=== PATIENT | female | born 1960 | race Caucasian/White ===

== ENCOUNTER 2023-09-18 13:39 | Emergency (ER) | payer MEDICARE, OTHER, SELFPAY ==
[2023-09-18] VITALS (16 sets, daily range): BP systolic 132–142; BP diastolic 71–92; PULSE 56–67; RESP 13–21; TEMP 36.5–36.7; O2SAT 93–99
--- NOTE | 2023-09-18 13:45 | RT.EKG_ITS ---
APPROVED REPORT Exam: Resting ECG Reason for Exam: epigastric pain Patient Location: E HR:60 bpm ECG Measurements Heart Rate 60 AXIS SC 164 P 49 QRSd 101 QRS 73 QT 403 T 45 QTc 403 Conclusion Sinus rhythm. 60 normal axis no stemi
--- NOTE | 2023-09-18 14:03 | ED.GENADUL_ITS ---
Discharge Plan Discharge Details Chief Complaint: Abd Prob Primary Care Provider: Unknown,Unknown ED Provider: Lex Garrett Home Meds and New Rx's Prescriptions: No Action lorazepam 0.5 mg tablet 0.5 mg PO PRN Patient Comments: TAKE 1 TABLET UP TO THREE TIMES DAILY FOR SEVERE ANXIETY, OR INSOMNIA Discharge Instructions Instructions: Abdominal Pain (ED) HPI General Mode of arrival: ambulatory . Date/Time Provider Initiated Documentation: 09/18/23 13:55 . Limitations to Documentation: no limitations . Information obtained by: patient and family . History of Present Illness 63 year old F presents to the emergency department with the chief complaint of Abdominal pain, described as mild, with intensity rated at 3. Quality is described as aching and other (Bloating), and is localized to the abdomen. Patient reports no radiation. Patient started experiencing this week(s) (1) and it has been constant. No relieving factors improve symptom(s), No exacerbating factors reported . Patient notes nausea/vomiting, shortness of breath and other (anxiety); denies chest pain. Patient did receive the following treatments prior to arrival, NSAID Related Data Home Medications Medication Instructions Recorded Confirmed lorazepam 0.5 mg tablet 0.5 mg PO PRN 09/18/23 09/18/23 Allergies Allergy/AdvReac Type Severity Reaction Status Date / Time No Known Allergies Allergy Unverified 09/18/23 13:47 General Stated Complaint: Abd Prob ROXIE: 3 Review of Systems Constitutional Constitutional: Denies fatigue, Denies headache(s) and Denies weakness ENT Ears, Nose, Mouth, and Throat: Denies headache(s) and Denies neck pain Cardiovascular Cardiovascular: Denies chest pain and Reports dyspnea Respiratory Respiratory: Denies cough and Reports dyspnea Gastrointestinal Gastrointestinal: Reports abdominal pain, Denies belching, Denies melena, Reports bloating, Denies hematochezia, Denies constipation, Denies cramping, Reports heartburn, Denies diarrhea, Reports nausea and Denies vomiting Genitourinary Genitourinary: Denies dysuria Musculoskeletal Musculoskeletal: Denies back pain and Denies neck pain Integumentary/Breasts Skin/Breast: Denies rash Neurologic Neurologic: Denies headache(s) and Denies weakness Psychiatric Psychiatric: Reports anxiety Endocrine Endocrine: Denies fatigue Exam Const General: cooperative, healthy appearing, comfortable and no acute distress Orientation: alert, awake and oriented x3 HENMT Head: normal to inspection, normocephalic and atraumatic Mouth: moist mucous membranes Eyes Conjunctivae: conjunctivae normal Neck Neck: normal visual inspection, trachea midline and supple Chest Chest: normal inspection of the chest and normal palpation of entire chest wall Resp Effort & Inspection: normal respiratory effort and able to speak in complete sentences Auscultation: clear to auscultation bilaterally Cardio Rate: regular rate Rhythm: regular rhythm GI Inspection: normal to inspection Palpation: soft, not firm, no guarding, no masses and nontender Auscultation: normal bowel sounds Back/Spine/Pelvis Back: no CVA tenderness and No back tenderness Skin General skin exam: no rashes or lesions noted Neuro General: patient alert, patient awake, patient oriented x3, moves all extremities and no focal motor deficits Cognition: normal cognition Speech: speech normal Gait: normal gait Motor: muscle tone normal throughout Sensory Exam: no sensory deficits noted Extrem General: normal to inspection, full ROM, capillary refill normal and no pedal edema Psych Appearance: grossly normal Mental Status: mental status grossly normal Speech and Movement: speech and movement normal Mood: anxious mood Affect: anxious affect Course Vital Signs Vital signs: Vital Signs Temperature 36.7 C 09/18/23 13:44 Pulse 64 09/18/23 13:44 Respiratory Rate 18 09/18/23 13:44 Blood Pressure 135/75 09/18/23 13:44 Pulse Oximetry 99 09/18/23 13:44 Temperature 36.7 C 09/18/23 13:44 Temperature Source Oral 09/18/23 13:44 Pulse 64 09/18/23 13:44 Respiratory Rate 18 09/18/23 13:44 Respiratory Effort Normal 09/18/23 13:46 Blood Pressure 135/75 09/18/23 13:44 Blood Pressure Position Sitting 09/18/23 13:44 Pulse Oximetry 99 09/18/23 13:44 Oxygen Delivery Method Room Air 09/18/23 13:44 Oxygen Flow Rate 0 09/18/23 13:44 Medical Decision Making 63-year-old female with a history of anxiety presents for what she describes as a 1 week history of diffuse abdominal discomfort, bloating, nausea but no vomiting. Reports within the past few days symptoms do seem to be more in her epigastric region. She has a history of GERD and previously took omeprazole but has not taken this medication in a few years. States that she thought her symptoms were very similar to her GERD, did take omeprazole over the last 48 hours as well as took ibuprofen with no improvement. She contacted her PCP office today and they recommended going to the nearest ER for concern this could be cardiac in etiology. Patient states soon after this conversation she became more anxious and since that time has felt what she describes as a short of breath. She denies any history of cardiac history. She denies change of appetite. Reports nausea but no vomiting. Denies back pain, dysuria, change in bowel or bladder habits. Patient does admit that a couple of weeks ago she learned that a family member was diagnosed with pancreatic cancer and this has been very worrisome to her. Clinically patient appears anxious but no acute distress and well. Lungs are clear to auscultation. Heart regular rate and rhythm. Abdomen is soft, nontender, no mass. Bowel sounds equal throughout. No CVA tenderness or back pain. Will provide full dose aspirin for potential cardiac etiology as well as a GI cocktail for potential GERD. Given she has not felt well for a week, will obtain a COVID and flu swab as well. Will also obtain a chest x-ray. Will obtain a cardiac workup including a delta troponin and D-dimer. Chest x-ray is unremarkable per radiology Laboratory values including a CBC, D-dimer, CMP are all unremarkable for obvious emergent process. D-dimer is 350, will not pursue CTA of the chest. Urinalysis without evidence of infection. Negative flu negative COVID-negative RSV. Upon reevaluation patient appears well, states that her symptoms are much improved and that she is no longer anxious. She has not received her aspirin or GI cocktail. I confirmed with her RN, this medication will be given now. Patient has remained hemodynamically stable. She appears well, nontoxic, abdomen remains nontender and nonsurgical. I see no clear indication for emergent abdominal CT imaging. Awaiting delta troponin. If troponin is normal and patient is feeling well then I believe discharge home is reasonable. Patient can follow-up with her PCP regarding her symptoms and could certainly have an outpatient cardiac workup including echo cardiogram and stress test as well as a abdominal CT if she continues to have any symptoms. Patient is agreeable to this plan. At time of signout to my colleague RANDEE Hernández awaiting reevaluation, delta troponin, and final disposition. This documentation was generated using Dragon dictation system, please disregard any oddities of phrase or misspellings. Medical Records Medical records narrative: No prior records available for review ECG Data Attestation: I personally reviewed and interpreted this ECG (s) as follows: Interpretation: Sinus rhythm, ventricular rate of 60. No STEMI. Please see official report by Dr. Shelby Quality:[facility] Health Related Social Needs: No Data to Display [facility] Social History Smoking/Tobacco Use Status: Never Smoking risk assessment performed?: Yes Alcohol Intake: never Substance use type: does not use Do you feel safe at home: Yes Do you feel safe in your relationship?: Yes
[2023-09-18 14:43] LABS: Abs Immature Grans 0.01 10^3/uL (0.0-0.06); Absolute Basophil Count 0.06 10^3/uL (0.0-0.2); Absolute Eosinophil Count 0.05 10^3/uL (0.0-0.7); Absolute Lymphocyte Count 1.83 10^3/uL (1.2-3.4); Absolute Neutrophil Count 3.54 10^3/uL (1.2-6.7); Eosinophils % 0.8; HCT 41.4 % (36.0-46.0); HGB 13.7 g/dL (11.2-15.7); Immature Grans % 0.2; Lymphocytes % 30.6; MCH 29.7 pg (27.0-33.0); MCHC 33.1 % (32.0-36.0); MCV 90 fL (80-95); Monocytes % 8.3; Neutrophils % 59.1; Platelet Count 202 10^3/uL (130-400); RBC 4.62 10^6/uL (3.93-5.22); RDW 12.5 % (11.7-14.6); RDW-SD 41.3 fL; WBC 5.99 10^3/uL (4.4-10.8)
[2023-09-18 14:58] LABS: PTT Activated 25.9 sec (23.6-32.8); Prothrombin Time 10.3 sec (9.1-11.1)
[2023-09-18 15:00] LABS: ALT 18 U/L (14-59); AST 15 U/L (15-37); Albumin 3.8 g/dL (3.4-5.0); Alkaline Phosphatase 61 U/L (46-116); Anion Gap 9.3 mmol/L (3-11); BUN 24 mg/dL (7-18); Bilirubin, Total 0.3 mg/dL (0.2-1.0); CO2 25.7 mmol/L (21.0-32.0); CREATININE 0.8 mg/dL (0.55-1.02); Calcium 8.9 mg/dL (8.5-10.1); Chloride 106 mmol/L (98-107); Estimated GFR 81.72 (mL/min/1.73m2); Glucose 93 mg/dL (74-106); Magnesium 2.1 mg/dL (1.8-2.4); Potassium 4.2 mmol/L (3.5-5.1); Sodium 141 mmol/L (136-145); Troponin I < 50 ng/L (< or =60)
[2023-09-18 15:13] LABS: D-Dimer 350 ng/mlFEU (<500)
--- NOTE | 2023-09-18 15:15 | DI.RAD_ITS ---
Exam(s) XR CHEST 2V PA LATERAL EXAM: XR CHEST 2V PA LATERAL CLINICAL HISTORY: upper abd pain TECHNIQUE: 2D digital imaging was performed. Two views. COMPARISON: No exams were available for comparison FINDINGS: HEART: Normal size. Aorta: Not dilated. PULMONARY VASCULATURE: Normal. LUNGS: Clear. PLEURAL SPACE: No pleural effusion or pneumothorax. BONE:Unremarkable for age. Soft tissues: Unremarkable. IMPRESSION: No acute abnormality. DATA REPOSITORY: RADIATION DOSE DELIVERED:
[2023-09-18 15:17] LABS: Bilirubin Negative (Negative); Blood Trace-intact (Negative); Clarity Clear (Clear); Glucose Negative (Negative); Ketones Negative (Negative); Leukocyte Esterase Negative (Negative); Nitrite Negative (Negative); Urobilinogen 0.2 mg/dL (Up to 0.2)
[2023-09-18 15:24] LABS: Bacteria Negative HPF (Negative); C & S Indicated? No; Casts Negative LPF (Negative); Crystals Negative HPF (Negative); Epithelial Cells Rare HPF (Negative); Mucus Negative (Negative); RBC 0-2 HPF (0-2); WBC 0-2 HPF (0-5)
[2023-09-18] MEDS: Aspirin 81 MG CHEW 324 MG CH (15:37)
[2023-09-18 15:51] LABS: COVID-19 PCR Negative (Negative); Influenza A PCR Negative (Negative); Influenza B PCR Negative (Negative); RSV PCR Negative (Negative)
[2023-09-18 15:53] LABS: Source Nasopharynx
[2023-09-18] MEDS: Normal Saline Flush 10 ML SYR IVP (17:04)
[2023-09-18] MEDS: Normal Saline - Diluent 50 ML VIAL IJ (17:04)
[2023-09-18] MEDS: Omnipaque 350 MG/ML 50 ML BTL IJ ×2 (17:05→17:11)
--- NOTE | 2023-09-18 17:18 | DI.CT_ITS ---
Exam(s) CT ABDOMEN PELVIS W EXAM: CT ABDOMEN PELVIS W CLINICAL HISTORY: ruq and epigastric pain TECHNIQUE: Imaging Protocol: Axial computed tomography images with coronal and sagittal reformatted images were created and reviewed. CONTRAST MATERIAL: Intravenous: Omnipaque 350 Contrast volume:100 mL Oral: No COMPARISON: No exams were available for comparison FINDINGS: ABDOMEN: Lung Bases: Normal where visualized. Liver: Normal density. No measurable mass. Portal, Superior Mesenteric, and Splenic Veins: Unremarkable. Gallbladder and Biliary Tract: No radiodense calculus or dilation. There is a tiny calcification in t he wall of the gallbladder. This is nonspecific. No stones are seen. Pancreas: Normal density, no abnormal calcifications or inflammatory process. Spleen: Normal. Adrenals: There is a tiny 7 mm hypodense nodule in the left adrenal gland. No follow-up is recommend ed. The right adrenal gland is unremarkable. Kidneys: Normal size, contour and axis. No radiodense stones or obstructive uropathy. There are few t iny hypodensity seen in the right kidney. They are too small for further characterization but statis tically likely reflect small cysts. No follow-up is recommended. Abdominal Aorta: Abdominal portion non-dilated. Atherosclerotic calcification is present. Bowel: There are few diverticula in the colon but no evidence of acute diverticulitis. There is no e vidence of bowel obstruction or bowel wall thickening. Appendix is unremarkable. Peritoneal Cavity: No ascites, collection or mesenteric inflammatory response. No free air. Lymph Nodes: Within normal limits. Bones: Within normal limits for the patient's age. Grade 1 anterolisthesis of L3 on L4. Soft Tissues: Unremarkable. PELVIS: Bladder: Symmetric distention, no gross wall thickening. Reproductive Organs: There is a 2 cm left ovarian cyst. Lymph Nodes: Within normal limits. Bones: Within normal limits for the patient's age. IMPRESSION: 1. No acute abdominal or pelvic process. 2. No evidence of nephrolithiasis or obstructive uropathy. 3. Normal appendix. 4. No biliary ductal dilatation. RADIATION DOSE DELIVERED: Total DLP DATA REPOSITORY: All CT scans at this facility are submitted to the National Radiology Data Registry (NRDR) Dose Index Registry (DIR) with the [employer] ([employer]). RADIATION OPTIMIZATION: All CT scans at this facility use at least one of these dose optimization te chniques: automated exposure control; mA and/or kV adjustment per patient size (includes targeted exa ms where dose is matched to clinical indication); or iterative reconstruction.
[2023-09-18 17:50] LABS: Troponin I < 50 ng/L (< or =60)
== END 2023-09-18 18:14 | disposition home or self-care (01) ==
PROVIDERS: Physician Assistant; Emergency Provider Physician Assistant
DX: R10.13 Epigastric pain (principal); R06.02 Shortness of breath; R11.0 Nausea; Z11.52 Encounter for screening for COVID-19
CPT/HCPCS: 80053; 87637; 93005; 99285; 71046; 74177; 81003; 81015; 83735; 84484; 85025; 85379; 85610; 85730; 93010; 99284; Q9967